=== PATIENT | female | born 1960 | race Caucasian/White ===

== ENCOUNTER 2023-02-06 16:07 | Emergency (ER) | payer OTHER ==
[2023-02-06 16:31] VITALS: BP 158/89; PULSE 89; RESP 17; TEMP 98.2; BMI 32.0
== END 2023-02-06 17:36 | disposition home or self-care (01) ==
LOC: FER 16:07
DX: R05.9 Cough, unspecified (principal); J20.9 Acute bronchitis, unspecified
CPT/HCPCS: 71046-TC-FY; 99283-25